=== PATIENT | female | born 1975 | race Caucasian/White ===

== ENCOUNTER 2018-11-03 10:24 | Emergency (ER) | payer BC, MEDICAID ==
[~2018-11-03] VITALS: Ht 165.1 cm; Wt 90.3 kg
[2018-11-03 10:26] VITALS: BP 125/90
[2018-11-03] MEDS ORDERED: AMLO10TA7 PO (10:31)
[2018-11-03] MEDS ORDERED: CITA40TA11 PO (10:31)
[2018-11-03] MEDS ORDERED: NORE0.3513 PO (10:38)
[2018-11-03] MEDS ORDERED: MECLIZINE HCL 25 MG TABLET ONE (11:53)
[2018-11-03] MEDS ORDERED: MECLIZINE HCL 12.5 MG TABLET PO ONE (12:00)
== END 2018-11-03 13:58 | disposition home or self-care (01) ==
LOC: ER 10:26
DX: H81.10 Benign paroxysmal vertigo, unspecified ear (principal); Z79.899 Other long term (current) drug therapy
CPT/HCPCS: 99283; J8597